=== PATIENT | male | born 1965 | race Caucasian/White ===

== ENCOUNTER 2016-09-04 12:17 | Inpatient (IN) | payer OTHER ==
[~2016-09-04] VITALS: Ht 188 cm; Wt 215.5 kg
--- NOTE | ~2016-09-04 | ECHO ---
Transthoracic Echocardiography Report (TTE) Demographics Patient Name HAYDER CUEVAS Date of Study 09/05/2016 Patient Number [id number] Visit Number [id number] Date of 1965 Room Number G6335 Gender Male Number Age 50 year(s) Referring Catherine Hawk V Order Filler Jason Moreno [facility] Physician Physician Interpreting Calli Dove Molder Shoulder Pad Physician MD Supervising Ordering Catherine Dorsey MD/MLP Physician Nurse Stress Hvac Designer Conclusions Contractility Score Summary At rest the following contractility abnormalities were noted: Dyskinesis of the Mid infero-septal, the Apical septal and the Apical cap segments. Contractility of all other segments appeared normal. Summary Technically difficult exam even with definity. Moderate concentric left ventricular hypertrophy.LVEF 45-50%.RWMAs cannot be confidently commented on.LV internal dimensions are normal. Mildly dilated aortic root and ascending aorta. Valves are not well imaged. Procedure Type of Study TTE procedure:2D Echocardiogram, M-Mode, Doppler , Color Doppler, Echo with Contrast. Procedure Date Date: 09/05/2016 Start: 10:24 AM Study Location: Inpatient Portable Technical Quality: Limited visualization due to body habitus. Indications:Congestive heart failure. Appropriate Use Criteria: 9 Patient Status: Routine Contrast Medium: Definity. Amount - 6 ml Rhythm: Within normal limits HR: 67 bpm BP: 135/85 mmHg M-Mode/2D Measurements LV Diastolic Dimension: 5.58 cm LV Systolic Dimension: 2.85 cm LV Septum Diastolic: 1.53 cm LV PW Diastolic: 1.57 cm AO Root Dimension: 4.1 cm Cardiac Output: 5.83 l/min AV Cusp Separation: 2.5 cm RV Diastolic Dimension: 3.21 cm LA volume: 47 ml LVOT: 2.6 cm RV Base: 3.82 cm LVOT VTI: 16.4 cm RV Mid: 2.5 cm LV Stroke volume: 87.03 ml TAPSE: 2.4 cm TDI-S': 19.2 cm/s Doppler Measurements AV Peak Velocity: 1.12 m/s MV Peak E-Wave: 0.8 m/s AV Peak Gradient: 5.02 mmHg MV Peak A-Wave: 0.55 m/s AV Mean Gradient: 4 mmHg MV E/A Ratio: 1.45 LVOT Peak Velocity: 0.86 m/s MV P1/2t: 82 msec TR Gradient:13.4 mmHg PV Peak Velocity: 1.36 m/s Estimated RAP:10 mmHg PV Peak Gradient: 7.4 mmHg Estimated RVSP: 23 mmHg Estimated PASP: 23.4 mmHg E' Septal Velocity: 0.1 m/s A' Septal Velocity: 0.07 m/s E' Lateral Velocity: 0.15 m/s A' Lateral Velocity: 0.12 m/s Findings Left Ventricle Moderate concentric left ventricular hypertrophy.LVEF:45-50%.WMAs cannot be commented on.LV internal dimensions are normal. Right Ventricle Normal right ventricle structure and function. Left Atrium Normal left atrial size. Right Atrium Normal right atrial size. Mitral Valve Normal mitral valve structure and function. Aortic Valve The aortic valve was not well imaged but velocity through valve is normal. Tricuspid Valve Trivial tricuspid regurgitation by color Doppler. Pulmonic Valve The pulmonic valve is not well visualized but velocity through the valve is normal. Pericardial Effusion No evidence of pericardial effusion. Miscellaneous Mildly dilated aortic root and ascending aorta. Pleural Effusion No evidence of pleural effusion. Signature dtt: Petty Mccurdy dtd: 09/05/16 [facility] Physician Self Edit
--- NOTE | ~2016-09-04 | CON ---
PATIENT'S NAME: SHARITA CUEVASLEY Latonya [facility] AGE: 50 Y [address] [place] [facility] [place] [place], [place] [address] LOCATION: GPCU ADMIT DATE: 09/04/2016 Consultation DISCHARGE DATE: FAMILY PHYSICIAN: PHYSICIAN, NO ATTENDING PHYSICIAN: MIREYA PEREZ V DATE OF CONSULTATION: 09/06/2016 REFERRING PHYSICIAN: Petty Mccurdy MD A 50-year-old male patient of Dr. Chris. Dear Dr. Chris: Thank you for asking me to see Mr. Whitaker who is a 50-year-old male patient who is admitted with what appears to be right lower extremity severe edema which has resulted in fluid escaping from the skin. He also has discoloration in his lower extremities consistent with long-standing venous stasis. He has pulmonary edema on the CT scan. He also ruled out for MA and pulmonary emboli. He is morbidly obese. He has history of hypertension. He denies diabetes, elevated cholesterol, or tobacco abuse. He denies family history premature coronary artery disease. He denies MA or angina or nitroglycerin use. He denies rheumatic fever, fever, congestive heart failure, dilated or enlarged heart, or any diagnosed cardiac arrhythmias. The patient is currently in functional class 4. MEDICATIONS: Ibuprofen on admission. ALLERGIES: NO KNOWN DRUG ALLERGIES. PAST MEDICAL HISTORY: Other than venous stasis and shortness of breath, he does not have any additional diagnoses. SOCIAL HISTORY: The patient is . He denies abusing alcohol. His appetite and weight are stable even though he is morbidly obese. Sleep is normal. He does athletic coach baseball team. FAMILY HISTORY: No premature coronary artery disease. PATIENT'S NAME: HAYDER CUEVAS [facility] AGE: 50 Y [address] ROOM: [id number] [place], [place] [address] LOCATION: GPCU ADMIT DATE: 09/04/2016 Consultation DISCHARGE DATE: FAMILY PHYSICIAN: PHYSICIAN, JUAN ALBERTO ATTENDING PHYSICIAN: MIREYA PEREZ V REVIEW OF SYSTEMS: A 12-point review of systems reveal no significant issues other than some constipation. He also has history of hay fever and some history of bronchitis. PHYSICAL EXAMINATION: VITAL SIGNS: On examination, his blood pressure is in the 150s over 70s, heart rate is in the room 60s and 70s regular, respiration is 18, and afebrile. HEENT: Normal. NECK: Supple with no JVD, thyromegaly, lymphadenopathy, or carotid bruit. HEART: PMI is not well located. First and second heart sounds are normal. There are no added sounds or murmurs. CHEST: Clear to auscultation. ABDOMEN: Obese, soft. No tenderness. EXTREMITIES: Reveals no edema, discoloration, and some open areas in his right lower leg. ASSESSMENT: A 50-year-old male patient with morbid obesity, and some hypertension presenting with congestive heart failure. He has no history of coronary artery disease, alcoholism or tachycardia-mediated cardiomyopathy or family history of cardiomyopathy. He is ruled out for pulmonary emboli as well as acute myocardial infarction. RECOMMENDATIONS: We will check on his echo report, nocturnal trend oximetry, and get him started on some aggressive diuresis starting tomorrow morning. Again, I appreciate this opportunity to participate in the care of Mr. Cuevas. MD CAROLANN CEVALLOS/netta /[id number] d: 09/07/16 0100 t: 09/23/16 1326, CONSULTATION REPORT
--- NOTE | ~2016-09-04 | ENPV ---
Vascular Lower Extremities DVT Study Procedure Demographics Patient Name HAYDER CUEVAS Date of Study 09/04/2016 Patient Number [id number] Gender Male Date of 1965 Age 50 Visit Number [id number] Height 74 Accession Number [id number] Weight 491.01 Referring Reed GLORIA Interpreting Eris Deshpande MD Physician Physician Physician Ordering Physician Reed Kuo Slimer JUANI Charge Nurse Rose Chong [facility] Conclusions Summary Normal venous duplex examination of the legs bilaterally with normal venous Doppler signals noted throughout. No evidence of thrombophlebitis is noted bilaterally in the deep and superficial veins of the legs. Small calf thrombi cannot be excluded. Procedure Type of Study: Veins:Lower Extremities DVT Study, Lower Extremity Right. Patient Status:Routine. Study Location:Inpatient Portable. Velocities are measured in cm/s ; Diameters are measured in cm Right Lower Extremities DVT Study Measurements Right 2D and Doppler Measurements + + + + +------+------+ + !Location !Visualized!Compressibility!Thrombosis!Signal!Reflux!Reflux ! ! ! ! ! ! ! !(sec) ! + + + + +------+------+ + !GSV Thigh !Yes !Yes !None !Phasic!No ! ! + + + + +------+------+ + !Common !Yes !Yes !None !Phasic!No ! ! !Femoral ! ! ! ! ! ! ! + + + + +------+------+ + !Prox !Yes !Yes !None !Phasic!No ! ! !Femoral ! ! ! ! ! ! ! + + + + +------+------+ + !Mid Femoral!Yes !Yes !None !Phasic!No ! ! + + + + +------+------+ + !Dist !Yes !Yes !None !Phasic!No ! ! !Femoral ! ! ! ! ! ! ! + + + + +------+------+ + !Popliteal !Yes !Yes !None !Phasic!No ! ! + + + + +------+------+ + !Gastroc !Yes !Yes !None !Phasic!No ! ! + + + + +------+------+ + !PTV !Yes !Yes !None !Phasic!No ! ! + + + + +------+------+ + !Peroneal !Yes !Yes !None !Phasic!No ! ! + + + + +------+------+ + Left Lower Extremities DVT Study Measurements Left 2D and Doppler Measurements + + + + +------+------+ + !Location !Visualized!Compressibility!Thrombosis!Signal!Reflux!Reflux ! ! ! ! ! ! ! !(sec) ! + + + + +------+------+ + !Common !Yes !Yes !None ! ! ! ! !Femoral ! ! ! ! ! ! ! + + + + +------+------+ + Impressions Right Impression Negative for DVT Left Impression Opposing comparison vessel negative for DVT Signature dtt: MARCIA JONES dtsandi: 09/04/16 1305 Physician Self Edit
--- NOTE | ~2016-09-04 | DS ---
PATIENT'S NAME: HAYDER CUEVAS [facility] AGE: 50 Y [address] ROOM: [address] [place], [place] [address] LOCATION: GPCU ADMIT DATE: 09/04/2016 Discharge Summary DISCHARGE DATE: 09/08/2016 FAMILY PHYSICIAN: PHYSICIAN, NO ATTENDING PHYSICIAN: Kenn Alexander V FINAL DIAGNOSES: 1. Acute systolic congestive heart failure, resolved. 2. Acute hypoxic respiratory failure, resolved. 3. Morbid obesity. 4. Chronic dermatitis to left leg. CONSULTATIONS: Cardiology, Dr. Mccurdy. PROCEDURES: None. REASON FOR ADMISSION: This is a 50-year-old male who presented with a right lower extremity worsening edema and leaking right leg. The patient was evaluated in the ER and then further admitted for likely cellulitis and CHF, please see Dr. Alexander' admission H and P for further details. DIAGNOSTIC STUDIES: A transthoracic echocardiogram was done that showed ejection fraction 45%-50%. Regional wall motion abnormalities could not be confidently commented. Mildly dilated aortic root and ascending aorta was noted. DVT study, bilateral lower extremity was found to be normal with no evidence of thrombophlebitis. Lactate 0.9. Serial cardiac enzymes were done and were essentially normal. ProBNP 266 on admission. Serial CBCs were done showed essentially normal white count, hemoglobin, hematocrit, and platelet levels. Serial BMP showed normal electrolytes and kidney function tests. The patient's bicarb level was 29 on admission, at the time of discharge it was 33 and stable. Liver function tests were normal. ESR 36. Hemoglobin A1c 6.2. Lipid panel was done showed total cholesterol 165, triglycerides 37, HDL 41, LDL 107. PT/INR and PTT normal. UA showed 1+ turbidity and few bacteria. Procalcitonin level 0.05. CRP 0.92. TSH 1.66. D-dimer 0.54. Chest x-ray was done on admission for swelling in the legs and showed borderline cardiomegaly with poor inspiration. No CHF, pneumonia, or pulmonary edema. No pleural fluid was noted. CT chest PE protocol was done for hypoxia and showed no CT findings of pulmonary embolism. Cardiac enlargement with vascular congestion was noted, ground ground-glass opacity in the parenchyma, in both lungs likely reflecting pulmonary edema was noted. Low lung volumes with streaky bibasilar opacity likely reflecting edema, atelectasis, or infiltrate were noted. Blood cultures were drawn on admission and were negative. HOSPITAL COURSE: The patient was admitted for evaluation and management of PATIENT'S NAME: HAYDER CUEVAS [facility] AGE: 50 Y [address] ROOM: [id number] [place], [place] [address] LOCATION: GPCU ADMIT DATE: 09/04/2016 Discharge Summary DISCHARGE DATE: 09/08/2016 FAMILY PHYSICIAN: PHYSICIAN, JUAN ALBERTO ATTENDING PHYSICIAN: Kenn Alexander V right lower extremity swelling and skin changes. The patient was thought to have CHF. Transthoracic echocardiogram was done and findings are as above. D- dimer was done and the patient underwent a CT chest PE protocol subsequently that showed findings suggestive of pulmonary edema. Cardiology Dr. Mccurdy was consulted. The patient was diuresed during this admission. His kidney function remained normal. He was being transitioned off oxygen. He still required oxygen during the day as well as at night. A trend-ox study was done prior to discharge. The patient qualified for home O2. The patient's dyspnea was improving by the time of discharge. The swelling in his legs had improved and a duplex ultrasound was done of bilateral lower extremities that was negative for any DVT. The patient was placed initially on broad-spectrum antibiotics and later transitioned to p.o. Keflex for lower extremity cellulitic changes. The patient was able to finish a course of Keflex. The patient continued to do well. There was no further plan from Cardiology for any invasive cardiac testing. The patient will need outpatient sleep study. He continued to do well and was discharged and asked to follow up with his primary care physician. DISCHARGE INSTRUCTIONS: The patient discharged on regular diet with activity as tolerated. Follow up with [facility] and establish care with a new PCP in 7 days' time. Follow up with Dr. Mccurdy in 2 weeks' time with [facility]. Outpatient sleep study is recommended for the patient. Weight monitoring is recommended for the patient. He is supposed to call his PCP, if he has more than 5 pounds weight gain. The patient verbalized understanding. The patient was discharged by Dr. Alvarez the next day, please see his discharge addendum. The patient is to use oxygen 2 L per nasal cannula at h.s. and p.r.n. during the day and RT to arrange for home O2. DISCHARGE MEDICATIONS: 1. Aspirin 81 mg p.o. daily. 2. Coreg 3.125 mg p.o. b.i.d. 3. Keflex 500 mg p.o. t.i.d., stop date 09/11/2016. 4. Lasix 40 mg p.o. b.i.d. 5. Florastor 250 mg p.o. b.i.d. 6. Aldactone 25 mg p.o. daily. This patient was managed by hospitalist and Cardiology teams during this admission. ERIC ANDRADE MD MT/netta PATIENT'S NAME: HAYDER CUEVAS [facility] AGE: 50 Y [address] ROOM: [place] [address] LOCATION[facility] ADMIT DATE: 09/04/2016 Discharge Summary DISCHARGE DATE: 09/08/2016 FAMILY PHYSICIAN: , JUAN ALBERTO ATTENDING PHYSICIAN: Kenn Alexander V /[id number] CC: Petty Mccurdy MD d: 09/11/16 1357 t: 09/23/16 1343, DISCHARGE SUMMARY
--- NOTE | ~2016-09-04 | ER ---
PATIENT'S NAME: HAYDER CUEVAS [facility] AGE: 50 Y [address] ROOM: [place] [address] LOCATION: GPCU ADMIT DATE: 09/04/2016 ER/Outpatient Report DISCHARGE DATE: FAMILY PHYSICIAN: PHYSICIAN, NO ATTENDING PHYSICIAN: RAMON COLON Time of Arrival: 1217 hours. Time of Evaluation: 1230 hours. CHIEF COMPLAINT: Right lower extremity swelling. HISTORY OF PRESENT ILLNESS: This is a 50-year-old male, who presents to the ER, who states he has had bilateral lower extremity swelling for over a couple of months. He states his right leg, however, has begun weeping for the past week. He states he has noticed some sores to the anterior aspect of his right ibarra, and he has been putting dressings on it, but the fluids continues to weep through that. He does not believe he has been running any fevers. He states he does have some slight pain to his lower extremities; however, he has numbness to his bilateral feet, sometimes that numbness extends up to his mid ibarra area. He states he does have shortness of breath with ambulation. He states that he does not have a local physician and has not seen a primary care physician in over 5 years. He states his last primary care physician was Dr. Appiah. He denies any recent upper respiratory infection. He denies any chest pain. No heart palpitations. No troubles with bowel movements or urination. ALLERGIES: NICKEL. MEDICATIONS: None. PAST MEDICAL HISTORY: Right shoulder surgery. SOCIAL HISTORY: Denies smoking, drug, or alcohol use. REVIEW OF SYSTEMS: A 10-point review of system was completed and was negative with the exception of those discussed in the HPI. PHYSICAL EXAMINATION: VITAL SIGNS: Weight 223 kg taken, blood pressure is 180/90, pulse 75, respirations 20, temperature 98.3 degrees tympanically, saturations 87% to 88% on room air. We did place him on 2 L nasal cannula. PATIENT'S NAME: HAYDER CUEVAS [facility] AGE: 50 Y [address] ROOM: [place] [address] LOCATION: GPCU ADMIT DATE: 09/04/2016 ER/Outpatient Report DISCHARGE DATE: FAMILY PHYSICIAN: PHYSICIAN, NO ATTENDING PHYSICIAN: RAMON COLON GENERAL: Alert, morbidly obese male, in no obvious distress. HEENT: Head: Normocephalic. He does display moist mucous membranes. Eyes: Pupils are equal and reactive to light. NECK: Supple. No lymphadenopathy. LUNGS: Diminished but clear throughout. HEART: Regular rate and rhythm. No lifts, thrills, or murmurs. ABDOMEN: Obese. It is nontender. Good bowel sounds throughout. EXTREMITIES: He does have pitting edema of bilateral lower extremities. He has venous staining to his bilateral lower extremities, right greater than left. On the right side, he does have some draining wounds, that are nickel sized. When you press on the edema, it does weep serosanguineous fluid. He does have decreased sensation of bilateral lower extremities. He states that this is normal for him. We did Doppler pulses bilaterally. NEURO: Cranial nerves 2 through 12 grossly intact. Gait was steady without assistance. LABORATORY DATA AND X-RAYS: CBC: White count is 8.9, hemoglobin is 14.8, and platelets 183, ANC is 6.4, INR is 1.0. CMS: Calcium 8.2, albumin 3.1, A/G ratio 0.7, otherwise unremarkable. Magnesium is 2.2. CPK is 34. CK-MB is 1.1. Troponin I is less than 0.040. CRP is 0.92. TSH is 1.660. Pro-BNP is 266. Hemoglobin A1c is 6.2, mean glucose was 131.2. Sedimentation rate is 36. D-dimer is 0.54. Urinalysis is negative for any infection. EKG shows sinus rhythm. Chest x- ray shows cardiomegaly. No clear infiltrate was seen. Did do a CT scan per PE protocol. It was difficult to see due to the patient's body habitus, but no PE was visualized. We could see he does have cardiomegaly, and he does have some pulmonary edema versus pulmonary vascular congestion. IMPRESSION: 1. Hypoxia. 2. Cardiomegaly. 3. Bilateral venous stasis with weeping serosanguineous fluid from the right lower extremity. ASSESSMENT AND PLAN: I did try to contact the [facility]. They state they did not feel comfortable and spoke with Dr. Acevedo. They state they did not feel comfortable seeing this patient at this time. Therefore, I called the Hospitalist Service, and they will admit the patient on observation status for further workup for his hypoxia and his venous stasis. The patient and the patient's understand and agree with care. PATIENT'S NAME: HAYDER CUEVAS [facility] AGE: 50 Y [address] ROOM: [place] [address] LOCATION: [facility] ADMIT DATE: 09/04/2016 ER/Outpatient Report DISCHARGE DATE: FAMILY PHYSICIAN: PHYSICIAN, NO ATTENDING PHYSICIAN: RAMON COLON PA-C FOR MD ROGERIO MCKAY/netta /[id number] d: 09/04/165 t: 09/11/16 1512, OUTPATIENT REPORT
--- NOTE | ~2016-09-04 | PUL ---
PATIENT'S NAME: HAYDER CUEVAS [facility] AGE: 50 Y [address] ROOM: [address] [address] LOCATION: GPCU ADMIT DATE: 09/04/2016 Pulmonary DISCHARGE DATE: 09/08/2016 FAMILY PHYSICIAN: PHYSICIAN, NO ATTENDING PHYSICIAN: Kenn Alexander V NAME OF PROCEDURE: Overnight Pulse Oximetry DATE OF PROCEDURE: September 06 to September 07, 2016 REASON FOR EXAM: Nocturnal hypoxemia RESULTS: The test was performed on room air. The recording time was 9 hours, 21 minutes, and 40 seconds, with a total valid sampling of 9 hours, 21 minutes and 32 seconds. The highest pulse was 90, lowest pulse was 54, with a mean pulse of 74. The highest SpO2 was 98%, lowest SpO2 was 68%, with a mean SpO2 of 84.6%. The patient spent 8 hours, 8 minutes and 4 seconds with SpO2 less than 89%, representing 86.9% of the total sleep time. The desaturation event index was significantly elevated 24.3. PHYSICIAN INTERPRETATION: The patient has evidence of severe nocturnal hypoxia and would qualify for supplemental oxygen as per Medicare criteria. However, because of the severity of the nocturnal hypoxia with an elevated desaturation event index a sleep study is recommended this time. MD SHIRLEY HEAD/jessica /[id number] dtt: 09/12/16 1522 , SANDHYA MARLOW dtd: 09/12/16 1114
--- NOTE | ~2016-09-04 | HP ---
PATIENT'S NAME: HAYDER CUEVAS [facility] AGE: 50 Y [address] ROOM: [place] [id number] LOCATION: GPCU ADMIT DATE: 09/04/2016 History & Physical DISCHARGE DATE: FAMILY PHYSICIAN: PHYSICIAN, NO ATTENDING PHYSICIAN: RAMON COLON DATE OF SERVICE: CHIEF COMPLAINT FOR THIS ADMISSION: "Right lower extremity worsening edema and leaking right leg." HISTORY OF PRESENT ILLNESS: The patient is a 50-year-old male with morbid obesity, but who carries no other past medical history and does not follow with doctors regularly. He has chronic bilateral lower extremity edema, but he noticed that he had worsening edema in his right lower extremity. He has also a couple of open areas, which are leaking serous fluid. He admits to increased dyspnea on exertion. He denies any orthopnea or PND. He denies any recent weight loss or weight gain. He denies fevers, chills, nausea, vomiting, palpitations, or chest pain. In the ER, the patient had Dopplers, which were read as negative. He had a CT of his chest with contrast to rule out PE, which was negative for PE, but demonstrated pulmonary edema and cardiomegaly. REVIEW OF SYSTEMS: All systems have been reviewed and are negative aside from pertinent positives mentioned above. PAST MEDICAL HISTORY: The patient denies. PAST SURGICAL HISTORY: The patient denies. CURRENT MEDICATIONS: Ibuprofen. SOCIAL HISTORY: Negative for any drug, tobacco, or alcohol abuse. FAMILY HISTORY: Positive for late onset coronary artery disease in his father. PHYSICAL EXAMINATION: VITAL SIGNS: At this point, his vital signs are, temperature 97.7, pulse is PATIENT'S NAME: HAYDER CUEVAS [facility] AGE: 50 Y [address] ROOM: [address] [address] LOCATION: GPCU ADMIT DATE: 09/04/2016 History & Physical DISCHARGE DATE: FAMILY PHYSICIAN: PHYSICIAN, NO ATTENDING PHYSICIAN: RAMON COLON 68, respirations are 18, blood pressure 154/111, and saturating 92% on 2 L. The patient desaturates to 89% on room air. GENERAL: Appears as a morbidly obese male, in no acute distress. NEUROLOGICAL: Nonfocal. EYES: Show pupils are equal and reactive to light. LYMPHATIC: Shows no cervical lymphadenopathy. ENDOCRINE: Shows no thyromegaly. LUNGS: Reveals crackles at bases bilaterally and 3+ pitting bilateral lower extremity edema. HEART: Shows regular rate and rhythm without appreciable murmurs, gallops, or rubs. GI: Abdomen is soft, nontender, nondistended. : Shows no costovertebral angle tenderness. VASCULAR: Reveals 2+ pedal pulses bilaterally. SKIN: Reveals chronic venous stasis discoloration at his bilateral lower extremities. There are crusty areas at his right as well as left lower extremity superimposed on some discoloration as well as several small (1 cm) areas that are leaking serous fluid. PSYCHIATRIC: Reveals appropriate mood, cognition, and affect. LABORATORY DATA AND X-RAYS: Studies performed in the ER are significant for a mostly unremarkable basic metabolic profile, proBNP of 266, hemoglobin A1c of 6.2, TSH of 1.6, unremarkable CBC, unremarkable urinalysis. EKG is not available to me at this point and I requested for it to be sent up. Official read for the CT of his chest with contrast shows cardiac enlargement, ground-glass opacity and parenchyma of both lungs reflecting pulmonary edema, low lung volumes with streaky bibasilar opacities which reflect edema, atelectasis, or some infiltrate. ASSESSMENT AND PLAN: This is a 50-year-old male, who will be admitted with: 1. Worsening lower extremity edema: This has already been worked up and is negative for deep vein thrombosis. I suspect this is related to worsening acute congestive heart failure. We will initiate the patient on diuretics. 2. Evidence of cellulitis of his lower extremities: We will put the patient on Ancef. We will also provide him with a probiotic. 3. Hypoxic respiratory failure: This may be acute or chronic and the etiologies may reflect obstructive sleep apnea versus chronic congestive heart failure versus worsening congestive heart failure versus a combination of both. We will provide the patient with oxygen. We will check a 2-dimensional echocardiogram in the morning. Subsequent workup will depend on the exams of the echocardiogram. 4. Suspected acute systolic congestive heart failure: As above. PATIENT'S NAME: HAYDER CUVEAS [facility] AGE: 50 Y [address] ROOM: [address] [id number] LOCATION: GPCU ADMIT DATE: 09/04/2016 History & Physical DISCHARGE DATE: FAMILY PHYSICIAN: JUAN ALBERTO SOUZA ATTENDING PHYSICIAN: RAMON COLON 5. Deep vein thrombosis prophylaxis will be pharmacologic as the patient has a very high risk of a deep vein thrombosis. Additional management will depend on clinical course. Time dedicated to this patient's encounter is 35 minutes. MD ESTELLA OROZCO/netta /[id number] D: [id number] T: [id number] HISTORY & PHYSICAL
[2016-09-04 13:36] LABS: PROTIME 10.7 SECONDS (9.6-11.1); PTT 29 SECONDS (25-32)
[2016-09-04 13:43] LABS: BASOPHIL % 0.3 %; EOSINOPHIL # 0.2 K/uL (0.0-0.5); EOSINOPHIL % 1.8 %; HEMATOCRIT 45.8 % (37.0-53.0); HEMOGLOBIN 14.8 g/dL (12.0-17.0); IMMATURE GRANULOCYTE % 0.2 %; LYMPHOCYTE # 1.7 K/uL (0.8-4.0); MCH 29.2 pg (27.0-34.0); MCHC 32.3 gm/dL (32.0-36.5); MCV 90.3 fl (83.0-98.0); MONOCYTE # 0.6 K/uL (0.0-1.0); MONOCYTE % 6.9 %; MPV 10.1 fl (9.4-12.4); NEUTROPHIL # (ANC) 6.4 K/uL (1.4-9.0); NEUTROPHIL % 71.8 %; NRBC % 0 /100WBC (0-0.00); PLATELET COUNT 183 K/uL (150-450); RBC 5.07 M/uL (4.00-6.00); WBC 8.9 K/uL (4.0-11.0)
[2016-09-04 13:44] LABS: ALBUMIN 3.1 gm/dL (3.5-5.0); ALK PHOS 116 IU/L (33-138); ALT 19 IU/L (12-78); ANION GAP 11.3 (10.0-19.0); AST 10 IU/L (10-40); BLOOD UREA NITROGEN 12 mg/dL (6-24); CALCIUM 8.2 mg/dL (8.5-10.5); CHLORIDE 103 mMol/L (96-110); CO2 29 mMol/L (22-32); CPK 34 IU/L (35-332); CREATININE 0.7 mg/dL (0.6-1.3); ESTIMATED GFR (MDRD EQUATION) > 60; MAGNESIUM 2.2 mg/dL (1.3-2.6); POTASSIUM 4.3 mMol/L (3.7-5.1); SODIUM 139 mMol/L (135-145); TOTAL BILIRUBIN 0.3 mg/dL (0.0-1.5); TOTAL PROTEIN 7.4 g/dL (6.0-8.4)
[2016-09-04 13:46] LABS: BILIRUBIN URINE NEGATIVE (NEGATIVE); BLOOD URINE NEGATIVE /UL (NEGATIVE); GLUCOSE URINE NEGATIVE (NEGATIVE); KETONE URINE NEGATIVE (NEGATIVE); LEUKOCYTES URINE NEGATIVE /UL (NEGATIVE); NITRITE URINE NEGATIVE (NEGATIVE); PROTEIN URINE 15 mg/dL (NEGATIVE); SPEC GRAVITY URINE 1.025 (1.003-1.035); UROBILINOGEN URINE 1 mg/dL (NORMAL)
[2016-09-04 13:55] LABS: COLOR URINE YELLOW (YELLOW); TURBIDITY URINE 1+ (CLEAR)
[2016-09-04 13:57] LABS: BACTERIA URINE FEW (NEGATIVE); EPITHELIAL URINE 0-2 #/HPF (NEGATIVE); RBC URINE NEGATIVE #/HPF (NEGATIVE); WBC URINE 0-2 #/HPF (NEGATIVE)
[2016-09-04] MEDS ORDERED: ADVIL200 MG PO (17:43)
[2016-09-05 15:48] LABS: CPK 58 IU/L (35-332)
[2016-09-05 21:21] LABS: CPK 56 IU/L (35-332)
[2016-09-06 03:44] LABS: CPK 87 IU/L (35-332)
[2016-09-06 17:19] LABS: BASOPHIL % 0.2 %; EOSINOPHIL # 0.2 K/uL (0.0-0.5); EOSINOPHIL % 2.4 %; HEMATOCRIT 45.2 % (37.0-53.0); HEMOGLOBIN 14.4 g/dL (12.0-17.0); IMMATURE GRANULOCYTE % 0.1 %; LYMPHOCYTE # 1.8 K/uL (0.8-4.0); LYMPHOCYTE % 20.5 %; MCHC 31.9 gm/dL (32.0-36.5); MCV 91.1 fl (83.0-98.0); MONOCYTE # 0.8 K/uL (0.0-1.0); MONOCYTE % 9.1 %; MPV 10.1 fl (9.4-12.4); NEUTROPHIL # (ANC) 5.8 K/uL (1.4-9.0); NEUTROPHIL % 67.7 %; NRBC % 0 /100WBC (0-0.00); PLATELET COUNT 169 K/uL (150-450); RBC 4.96 M/uL (4.00-6.00); RDW-CV 12.9 % (11.9-14.6); WBC 8.6 K/uL (4.0-11.0)
[2016-09-06 17:37] LABS: ANION GAP 10.1 (10.0-19.0); BLOOD UREA NITROGEN 17 mg/dL (6-24); CALCIUM 8.4 mg/dL (8.5-10.5); CHLORIDE 98 mMol/L (96-110); CO2 33 mMol/L (22-32); CREATININE 0.7 mg/dL (0.6-1.3); ESTIMATED GFR (MDRD EQUATION) > 60; POTASSIUM 4.1 mMol/L (3.7-5.1); SODIUM 137 mMol/L (135-145)
[2016-09-07 04:58] LABS: ANION GAP 10.8 (10.0-19.0); BLOOD UREA NITROGEN 18 mg/dL (6-24); CALCIUM 8.4 mg/dL (8.5-10.5); CHLORIDE 98 mMol/L (96-110); CO2 34 mMol/L (22-32); CREATININE 0.8 mg/dL (0.6-1.3); ESTIMATED GFR (MDRD EQUATION) > 60; POTASSIUM 3.8 mMol/L (3.7-5.1); SODIUM 139 mMol/L (135-145)
[2016-09-08 05:22] LABS: ANION GAP 8.9 (10.0-19.0); BLOOD UREA NITROGEN 20 mg/dL (6-24); CALCIUM 8.5 mg/dL (8.5-10.5); CHLORIDE 101 mMol/L (96-110); CO2 33 mMol/L (22-32); CREATININE 0.8 mg/dL (0.6-1.3); ESTIMATED GFR (MDRD EQUATION) > 60; POTASSIUM 3.9 mMol/L (3.7-5.1); SODIUM 139 mMol/L (135-145)
[2016-09-08] MEDS ORDERED: ASPIRIN (CHILDR81 MG PO (12:48)
[2016-09-08] MEDS ORDERED: COREG 3.1253.125 MG PO (12:50)
[2016-09-08] MEDS ORDERED: KEFLEX500 MG PO (12:50)
[2016-09-08] MEDS ORDERED: LASIX40 MG PO (12:51)
[2016-09-08] MEDS ORDERED: ALDACTONE25 MG PO (12:52)
[2016-09-08] MEDS ORDERED: FLORASTOR250 MG PO (12:52)
== END 2016-09-08 14:30 | disposition disaster alternative care site (69) | DRG 291 ==
LOC: GMED 12:17 → GPCU 16:00
PROVIDERS: Family Medicine; Physician Assistant Medical; ADMIT Internal Medicine
DX: I50.21 Acute systolic (congestive) heart failure (principal); J96.01 Acute respiratory failure with hypoxia; Z68.44 Body mass index [BMI] 60.0-69.9, adult; E66.01 Morbid (severe) obesity due to excess calories; L03.115 Cellulitis of right lower limb; G47.36 Sleep related hypoventilation in conditions classified elsewhere; I10 Essential (primary) hypertension; I87.2 Venous insufficiency (chronic) (peripheral)
CPT/HCPCS: C8929; J0690; J1650; J1940; Q9957; Q9967